=== PATIENT | female | born 1960 | race Caucasian/White ===

== ENCOUNTER 2021-09-03 11:43 | Outpatient (CLI) | payer MEDICARE, MEDICAID | END 2021-09-03 11:44 | disposition short-term general hospital (02) | LOC: EMS 11:43 | DX: R06.03 Acute respiratory distress (principal); R41.0 Disorientation, unspecified; R44.3 Hallucinations, unspecified | CPT/HCPCS: A0425; A0427 ==

== ENCOUNTER 2022-04-05 18:38 | Outpatient (CLI) | payer MEDICARE, MEDICAID | END 2022-04-05 18:39 | disposition short-term general hospital (02) | LOC: EMS 18:38 | DX: R46.89 Other symptoms and signs involving appearance and behavior (principal); R32 Unspecified urinary incontinence; R50.9 Fever, unspecified; R00.0 Tachycardia, unspecified | CPT/HCPCS: A0425; A0429 ==